=== PATIENT | female | born 1940 | race Caucasian/White ===

== ENCOUNTER 2017-05-09 12:20 | Emergency (ER) | payer MEDICARE ==
[2017-05-09 12:40] VITALS: BP 102/59; PULSE 68; RESP 18; TEMP 98.2
--- NOTE | 2017-05-09 12:44 | ED ---
Back Pain HPI - General Stated Complaint: Back Pain Time Seen by Provider: 05/09/17 12:24 Source: RN notes reviewed - History of Present Illness Initial Comments: Patient is 76-year-old female presents to the emergency room for evaluation of back pain. Patient states she has a history of chronic back pain. Patient states she has history of scoliosis. Patient states she will have episodes of spasming in her lower back that will last about half hour. Patient states today after walking out of a store she began having spasming in her right lower back radiating to her left lower back. Patient states she was in so much pain she could not stand straight so EMS was called. Patient states after lying down in the ambulance the spasming has subsided. Patient states she is feeling much better now. Patient states she does not have any pain. Patient denies paresthesias. Patient denies saddle anesthesia. Patient denies urine or fecal incontinence. Patient states the spasming is consistent with her normal episodes. Patient states she takes Tylenol extra strength daily for pain. Patient denies any recent fall or injury to her back. Patient denies any other symptoms or complaints. - Related Data Allergies Allergy/AdvReac Type Severity Reaction Status Date / Time No Known Allergies Allergy Verified 05/09/17 12:37 Review of Systems ROS Statement: Those systems with pertinent positive or pertinent negative responses have been documented in the HPI. ROS Other: All systems not noted in ROS Statement are negative. General Exam - General Exam Comments Initial Comments: Sitting in exam room, no acute distress. General appearance: alert, in no apparent distress Head exam: Present: atraumatic, normocephalic, normal inspection Eye exam: Present: normal appearance ENT exam: Present: normal exam Neck exam: Present: normal inspection Respiratory exam: Present: normal lung sounds bilaterally. Absent: respiratory distress Cardiovascular Exam: Present: regular rate, normal rhythm, normal heart sounds Extremities exam: Present: normal inspection, normal capillary refill Back exam: Present: normal inspection, full ROM. Absent: tenderness, CVA tenderness (R), CVA tenderness (L), muscle spasm, vertebral tenderness Neurological exam: Present: alert, oriented X3, CN II-XII intact, normal gait Psychiatric exam: Present: normal affect, normal mood Skin exam: Present: warm, dry, intact, normal color. Absent: rash Course Vital Signs 05/09/17 12:37 Temperature 98.2 F Pulse Rate 68 Respiratory 18 Rate Blood Pressure 102/59 O2 Sat by Pulse 98 Oximetry Medical Decision Making - Medical Decision Making Patient is a 76-year-old female presents to the emergency room for evaluation of low back pain. Patient has a history of low back pain. Patient has a history of episodes of muscle spasming in her back. Patient states this episode is similar to her other episodes. Patient denies any pain at the moment. Patient refused any pain medications or any further workup. Patient would like to be discharged home. Return parameters discussed. Disposition Clinical Impression: Low back pain Disposition: HOME SELF-CARE Condition: Good Instructions: Back Pain (ED), Lower Back Exercises (ED) Additional Instructions: Continue taking Tylenol or ibuprofen as needed for pain. Warm moist heat. Please follow up with primary care provider in 1-2 days. If any new symptom arises or symptoms worsen, return to ER as soon as possible. Referrals: Junaid Ayers MD [Primary Care Provider] - 1-2 days Time of Disposition: 12:41
== END 2017-05-09 12:59 | disposition home or self-care (01) ==
LOC: EC 12:20
DX: M62.830 Muscle spasm of back (principal)
CPT/HCPCS: 99283

== ENCOUNTER → 2018-05-13 | Outpatient (CLI) | payer MEDICARE ==
--- NOTE | 2018-05-15 10:27 | MM ---
Reason for exam: screening (asymptomatic). Last mammogram was performed 3 years and 4 months ago. History: Patient is postmenopausal. Took estrogen for 3 years 6 months. Took progesterone for 3 years 6 months. Physical Findings: A clinical breast exam by your physician is recommended on an annual basis and results should be correlated with mammographic findings. MG 3D Screening Mammo W/Cad Bilateral CC and MLO view(s) were taken. Prior study comparison: January 21, 2015, left breast MG work up mamm w CAD LT. January 15, 2015, bilateral MG screening mammo w CAD. There are scattered fibroglandular densities. Benign appearing bilateral calcifications. No suspicious abnormality. No significant changes when compared with prior studies. ASSESSMENT: Benign, BI-RAD 2 RECOMMENDATION: Routine screening mammogram of both breasts in 1 year.
== END | disposition home or self-care (01) ==
LOC: RADMAMWWP 17:03
PROVIDERS: ATTEND Family Medicine
DX: Z12.31 Encounter for screening mammogram for malignant neoplasm of breast (principal)
CPT/HCPCS: 77063; 77067

== ENCOUNTER → 2018-10-03 | Outpatient (CLI) | payer MEDICARE ==
[2018-10-03 14:41] LABS: HCT 44.7 % (34.0-46.0); HGB 14.9 gm/dL (11.4-16.0); MCH 30.6 pg (25.0-35.0); MCHC 33.2 g/dL (31.0-37.0); MCV 92.1 fL (80.0-100.0); Mean Platelet Volume 6.9; Platelet Count 263 k/uL (150-450); RBC 4.86 m/uL (3.80-5.40); RDW 12.5 % (11.5-15.5)
[2018-10-03 14:43] LABS: Appearance,Urine Clear (Clear); Bilirubin,Urine Negative (Negative); Blood,Urine Negative (Negative); Color,Urine Yellow; Glucose,Urine (UA) Negative (Negative); Ketones,Urine Negative (Negative); Leukocyte Esterase,Urine Negative (Negative); Nitrite,Urine Negative (Negative); PH, Urine 7.5 (5.0-8.0); Protein,Urine Negative (Negative); Specific Gravity,Urine 1.007 (1.001-1.035); Urobilinogen,Urine <2.0 mg/dL (<2.0)
[2018-10-03 14:50] LABS: Partial Thromboplastin Time 24.1 sec (22.0-30.0); Prothrombin Time 9.9 sec (9.0-12.0)
[2018-10-03 14:54] LABS: ALT 30 U/L (9-52); AST 29 U/L (14-36); Albumin 4.4 g/dL (3.5-5.0); Alkaline Phosphatase 58 U/L (38-126); Anion Gap 9 mmol/L; Blood Urea Nitrogen 7 mg/dL (7-17); Calcium 9.7 mg/dL (8.4-10.2); Carbon Dioxide 29 mmol/L (22-30); Chloride 94 mmol/L (98-107); Glucose 146 mg/dL (74-99); Potassium 4.2 mmol/L (3.5-5.1); Sodium 132 mmol/L (137-145); Total Bilirubin 0.5 mg/dL (0.2-1.3); Total Protein 6.7 g/dL (6.3-8.2)
== END | disposition home or self-care (01) ==
LOC: LABPAT 13:58
PROVIDERS: ATTEND Orthopaedic Surgery
DX: Z01.812 Encounter for preprocedural laboratory examination (principal)
CPT/HCPCS: 80053; 81003; 85027; 85610; 85730; 87070

== ENCOUNTER → 2018-10-09 | Outpatient (CLI) | payer MEDICARE | END | disposition home or self-care (01) | LOC: LABWHC1 11:15 | PROVIDERS: ATTEND Orthopaedic Surgery | DX: Z01.812 Encounter for preprocedural laboratory examination (principal) | CPT/HCPCS: 86850; 86900; 86901 ==

== ENCOUNTER 2018-10-21 10:07 | Inpatient (IN) | payer MEDICARE ==
[~2018-10-21 10:07] MED LIST: ACETAMINOPHEN TAB 500 MG TAB PO ONE; MELOXICAM 7.5 MG TAB PO ONE; TRANEXAMIC ACID 1,000 MG in SODIUM CHLORIDE 0.9% 50 ML IVPB ONE; VANCOMYCIN 750 MG in SODIUM CHLORIDE 0.9% 250 ML IVPB ONE
[2018-10-21] MEDS ORDERED: LIDOCAINE 1% 20 ML VIAL (10MG/ML) FOR IV START INTRADERMA PRN (11:06)
[2018-10-21] MEDS ORDERED: ONDANSETRON 4 MG/2 ML VIAL IVP ONE (11:06)
[2018-10-21] MEDS ORDERED: DEXAMETHASONE SOD PHOSPHATE 10 MG/ML 1 ML VIAL IV ONE (11:06)
[2018-10-21] MEDS ORDERED: SCOPOLAMINE 1.5MG/72HR PATCH TRANSDERM ONE (11:06)
[2018-10-21] MEDS ORDERED: HYDROmorphone 1 MG/ML 1 ML SYRINGE IVP PRN ×4 (11:06→11:59)
[2018-10-21] MEDS: LACTATED RINGERS 1,000 ML IV SCH (11:13)
[2018-10-21] MEDS ORDERED: NALOXONE 0.4 MG/ML 1 ML VIAL IV PRN (11:59)
[2018-10-21] MEDS ORDERED: MAGNESIUM HYDROXIDE 2,400 MG/10 ML CUP PO PRN (11:59)
[2018-10-21] MEDS ORDERED: hydrOXYzine PAMOATE 25 MG CAP PO PRN (11:59)
[2018-10-21] MEDS ORDERED: HYDROcodone/APAP 5-325MG 1 EACH TAB PO PRN (11:59)
[2018-10-21] MEDS ORDERED: ONDANSETRON 4 MG/2 ML VIAL IVP PRN (11:59)
[2018-10-21] MEDS: ROPIVACAINE 246.25 MG, EPINEPHrine 0.5 MG, KETOROLAC 30 MG, cloNIDine HCL/PF 80 MCG, WA... MISCELLANE ONE ×10 (13:48→14:21)
[2018-10-21] MEDS ORDERED: TRANEXAMIC ACID 1,000 MG/10 ML VIAL ONE (13:51)
[2018-10-21] MEDS ORDERED: MIDAZOLAM 2 MG/2 ML VIAL ONE (13:51)
[2018-10-21] MEDS ORDERED: HEPARIN SODIUM,PORCINE 10,000 UNIT/ML 1 ML VIAL ONE (13:51)
[2018-10-21] MEDS ORDERED: PHENYLEPHRINE-0.9% NACL SYG 1 MG/10 ML SYRINGE ONE (13:51)
[2018-10-21] MEDS ORDERED: ePHEDrine SULFATE/0.9% NACL/PF 50 MG/5 ML SYRINGE IV ONE (13:51)
[2018-10-21] MEDS ORDERED: SODIUM CHLORIDE 0.9% 100 ML BAG ONE (13:51)
[2018-10-21] MEDS ORDERED: DEXTROSE 5% IN WATER 250 ML BAG IV ONE (13:51)
[2018-10-21] MEDS ORDERED: fentaNYL (PF) 50 MCG/ML 2 ML AMP ONE (13:51)
[2018-10-21] MEDS ORDERED: SODIUM CHLORIDE 0.9% IRRIG 1,000 ML BTL IRRIGATION ONE (13:51)
[2018-10-21] MEDS ORDERED: BUPIVACAINE (PF) 0.5% 30 ML VIAL ONE (13:51)
--- NOTE | 2018-10-21 15:23 | P.OP ---
Date of Procedure: 10/21/18 Preoperative Diagnosis: Severe osteoarthritis right hip Postoperative Diagnosis: Severe osteoarthritis right hip Procedure(s) Performed: Right total hip arthroplasty with a direct anterior approach Implants: Lopez and nephew Polarstem size 3 standard Lopez & Nephew R3, 3 hole acetabular shell, 48 mm Lopez & Nephew reflection 6.5 mm cancellus screw, 20 mm 2 Lopez & Nephew R3, XLPE 20 acetabular liner Lopez & Nephew Oxinium femoral head 32 m, +0 All components were press-fit. The articulation is Oxinium on polyethylene. Anesthesia: spinal Surgeon: Mitchell Carbajal Box Sealing Machine Operator #1: Malu Lewis Estimated Blood Loss (ml): 300 (131 mL returned with Cell Saver) Pathology: other (Femoral head) Condition: stable Disposition: PACU Indications for Procedure: After failure of conservative treatment we discussed the surgical and nonsurgical treatment options at length. Patient wishes to proceed with a total hip arthroplasty with a direct anterior approach. Complications specific to this procedure were discussed at length, including but not limited to infection, leg length discrepancy, dislocation, and nerve injury. Patient is aware of all these complications and informed consent was obtained Operative Findings: The operative findings are consistent with severe osteoarthritis of the right hip Description of Procedure: Patient was seen and evaluated in the preoperative area, consent was reviewed, and the surgical site was marked with a skin marker. Patient was then brought to the operating room and given prophylactic antibiotics intravenously. 1 g of Tranexamic acid was also given. A spinal anesthetic was administered by the anesthesia department. The patient was then placed on the [place] table with the bony prominences well-padded. The hip area was then prepped and draped in usual sterile fashion. A universal timeout was then performed, which confirmed the patient's name, surgical site, ALLERGIES, and procedure being performed. Next the incision site was located at 1 cm distal and 1 cm lateral to the anterior superior iliac spine. The skin and subcutaneous tissues were sharply incised. Incision was carefully dissected down to the fascia overlying the tensor fascia renato muscle. This fascia was then incised in line with the incision. Next, using blunt finger dissection, the tensor fascia renato muscle was dissected off its investing fascia. The muscle was then carefully retracted laterally with a cobra retractor over the lateral neck of the femur. Next, the circumflex vessels were identified and cauterized using the AquaMantis device. The anterior hip capsule was then exposed. The capsule was then opened and an inverted T fashion. Cobra retractors were then placed intracapsularly. The proximal femur was then visualized. The femoral neck was then osteotomized appropriate level above the lesser trochanter. Small amount of traction was placed with the [place] table. A small wedge of bone was then removed from the remaining femoral head. Next, using a corkscrew femoral head was easily removed from the acetabulum. On gross visual inspection, the femoral head had complete loss of articular cartilage in multiple periarticular osteophytes. Attention was then turned to the acetabulum. the acetabulum was exposed and any remaining labrum was excised. Sequential reaming of the acetabulum was performed using fluoroscopic guidance. When the appropriate size was reached, a trial was then placed. The position and fit of the trial was checked with fluoroscopy. The trial was then removed. Then, using fluoroscopic guidance, the final implant was impacted at 20 of anteversion and 40 of abduction, and fully seated in the acetabulum. 2 screws were then placed in the acetabulum. Again fluoroscopy was used to check position of the screws. Next, the liner was then impacted, with a 20 elevated liner located in the anterior superior quadrant. Component locking was confirmed. Attention was then directed to the femur. With the aid of the [place] table, the femur was externally rotated to approximately 130, extended, and abducted under the opposite leg. A side hook was then placed under the proximal femur, and the side hook elevator was used to elevate the proximal femur. Retractors were then placed. A capsular release was performed, as well as a release of the conjoined tendon, which afforded excellent visualization of the proximal femur. Next, a box osteotome was used to lateralize the proximal femur. A sizer hand was then used to locate the femoral canal. Sequential broaching was then performed with appropriate size which afforded excellent fixation in the proximal femur. A trial was then placed with appropriate head and neck, and the hip was gently reduced with the aid of the [place] table. Fluoroscopy was then used to check position of the components, as well as to ensure equal leg lengths. The hip was then gently dislocated and the trials were then removed. Final implants were then impacted and the hip was again reduced. Final fluoroscopic x-rays confirmed that the components were in anatomic position, as well as equal leg lengths. The hip was also taken through range of motion, and found to be stable. The hip was then copiously irrigated with antibiotic solution with pulsatile lavage. The hip was then irrigated with Irrisept solution. The soft tissues were then injected with a ropivacaine solution, which consisted of 246.25 mg of ropivacaine, 0.5 mg of epinephrine, 30 mg of Toradol, 80 g of clonidine, and 48.45 mL of sterile water, for a total of 100 mL of fluid injected. A second dose of 1 g of Tranexamic acid was also given. the fascia was then closed with 2-0 strata fix suture. The subcutaneous tissue was closed with 3-0 Vicryl. The subcuticular tissue was closed with 3-0 strata fix suture. The skin was then closed with Dermabond glue and a sterile silver dressing. The patient was then transferred to the recovery room in stable condition. The geriatric assistant SEBASTIEN Smith was required due to the complexity of surgery, and the need for skilled surgical instrument maker for positioning, draping, exposure, retraction, and closure of the wound.
--- NOTE | 2018-10-21 15:55 | XR ---
EXAMINATION TYPE: XR Hip Limited RT, XR Hip Limited RT DATE OF EXAM: 10/21/2018 CLINICAL HISTORY: Right hip pain. TECHNIQUE: Fluoroscopy. COMPARISON: None. FINDINGS/IMPRESSION: Fluoroscopic guidance was provided during procedure performed by Dr. Carbajal. A total of 39 seconds of fluoroscopic time was utilized during the procedure and 2 spot images was a cquired during a right hip arthroplasty.
[2018-10-21 18:25] VITALS: BMI 24.0
[2018-10-21] MEDS: SODIUM CHLORIDE 0.9% 1,000 ML IV SCH (19:09)
[2018-10-21] MEDS: ASPIRIN 325 MG TAB PO SCH (21:44)
[2018-10-21] MEDS: SENNOSIDES-DOCUSATE SODIUM 1 EACH TAB PO SCH (21:44)
[2018-10-22] MEDS ORDERED: VANCOMYCIN 750 MG in SODIUM CHLORIDE 0.9% 250 ML IVPB ONE ×2
[2018-10-22] MEDS: SODIUM CHLORIDE 0.9% 1,000 ML IV SCH ×2 (03:42→20:10)
[2018-10-22 07:02] LABS: Basophils % (A) 0 %; Eosinophils % (A) 0 %; HCT 32.3 % (34.0-46.0); Lymphocytes # (A) 0.6 k/uL (1.0-4.8); Lymphocytes % (A) 6 %; MCH 31.5 pg (25.0-35.0); MCHC 34.9 g/dL (31.0-37.0); MCV 90.3 fL (80.0-100.0); Mean Platelet Volume 7.2; Monocytes # (A) 0.6 k/uL (0-1.0); Monocytes % (A) 6 %; Neutrophils # (A) 7.9 k/uL (1.3-7.7); Neutrophils % (A) 86 %; Platelet Count 196 k/uL (150-450); RBC 3.58 m/uL (3.80-5.40); RDW 12.6 % (11.5-15.5); WBC 9.1 k/uL (3.8-10.6)
[2018-10-22 07:03] LABS: HGB 11.3 gm/dL (11.4-16.0)
[2018-10-22] MEDS: MELOXICAM 7.5 MG TAB PO SCH (08:45)
[2018-10-22] MEDS: ASPIRIN 325 MG TAB PO SCH ×2 (08:45→20:21)
--- NOTE | 2018-10-22 09:25 | P.PN ---
Subjective Progress Note Date: 10/22/18 This is a 78-year-old female who is status post right total hip arthroplasty. This is postoperative day #1. Patient is seen and evaluated at bedside with Dr. Mitchell Carbajal. Patient states that she has not been able to bear weight on the right lower extremity yet. Patient also reports some numbness to the top of her right thigh. Patient denies any fever/chills, weakness, tingling, abdominal pain, shortness of breath or chest pain. Objective - Vital Signs Vital signs: Vital Signs Temp 97.6 F 10/22/18 07:20 Pulse 92 10/22/18 07:20 Resp 16 10/22/18 07:20 BP 134/72 10/22/18 07:20 Pulse Ox 98 10/22/18 07:20 Intake & Output 10/21/18 10/22/18 10/22/18 18:59 06:59 18:59 Intake Total 1300 950 Output Total 300 Balance 1000 950 Weight 54 kg Intake: IV 1300 Intake, IV Titration 950 Amount Sodium Chloride 0.9% 1, 700 000 ml @ 70 mls/hr IV . [id number] [facility] Rx#:[id number] Vancomycin 750 mg In 250 Sodium Chloride 0.9% 250 ml @ 125 mls/hr IVPB ONCE ONE Rx#:[id number] Output: Estimated Blood Loss 300 Other: # Voids 1 - Exam Vital signs are stable. Patient is in no acute distress and is alert and oriented 3. Calf is soft and nontender to palpation. Dressing is clean, dry, and intact. Patient has full foot and ankle motion without pain or difficulty. Neurovascular status and circulatory status are intact. - Labs CBC & Chem 7: 10/22/18 06:11 Labs: Abnormal Lab Results - Last 24 Hours (Table) 10/22/18 Range/Units 06:11 RBC 3.58 L (3.80-5.40) m/uL Hgb 11.3 L D (11.4-16.0) gm/dL Hct 32.3 L (34.0-46.0) % Neutrophils # 7.9 H (1.3-7.7) k/uL Lymphocytes # 0.6 L (1.0-4.8) k/uL Assessment and Plan (1) Primary osteoarthritis of right hip Current Visit: Yes Status: Acute Code(s): M16.11 - UNILATERAL PRIMARY OSTEOARTHRITIS, RIGHT HIP SNOMED Code(s): 214581069 (2) S/P total hip arthroplasty Current Visit: Yes Status: Acute Code(s): Z96.649 - PRESENCE OF UNSPECIFIED ARTIFICIAL HIP JOINT SNOMED Code(s): 451417214554 Plan: Continue routine postop care. An x-ray of the right hip is ordered. Continue antocoagulation. Weightbearing as tolerated with a walker. Leave dressing in place for 10 days. Anticipate discharge to the [facility] on .
--- NOTE | 2018-10-22 10:06 | XR ---
EXAMINATION TYPE: XR Hip Complete RT DATE OF EXAM: 10/22/2018 CLINICAL HISTORY: Right hip pain and osteoarthritis. TECHNIQUE: Single AP portable view of the right hip is obtained immediately postoperatively. COMPARISON: None. FINDINGS: Metallic hardware from right hip arthroplasty is seen and appears satisfactory in alignment and position. There is evidence of recent surgery with subcutaneous gas noted laterally. IMPRESSION: Metallic hardware from right hip arthroplasty is satisfactory in position.
[2018-10-22] MEDS: HYDROcodone/APAP 5-325MG 1 EACH TAB PO PRN ×3 (10:44→21:57)
[2018-10-22] MEDS: LACTATED RINGERS 1,000 ML IV SCH (15:55)
[2018-10-22] MEDS: LISINOPRIL 10 MG TAB PO SCH (20:21)
[2018-10-22] MEDS: HYDROCHLOROTHIAZIDE 25 MG TAB PO SCH (20:21)
[2018-10-22] MEDS: SENNOSIDES-DOCUSATE SODIUM 1 EACH TAB PO SCH (20:21)
[2018-10-22] MEDS: DIAZEPAM 5 MG TAB PO PRN (22:34)
[2018-10-23] MEDS: HYDROcodone/APAP 5-325MG 1 EACH TAB PO PRN ×2 (03:30→08:58)
[2018-10-23] MEDS: DIAZEPAM 5 MG TAB PO PRN (05:43)
[2018-10-23] MEDS: PANTOPRAZOLE 40 MG TABLET PO SCH (07:57)
[2018-10-23] MEDS: HYDROCHLOROTHIAZIDE 25 MG TAB PO SCH (08:58)
[2018-10-23] MEDS: MELOXICAM 7.5 MG TAB PO SCH (08:58)
[2018-10-23] MEDS: LISINOPRIL 10 MG TAB PO SCH (08:58)
[2018-10-23] MEDS: ASPIRIN 325 MG TAB PO SCH ×2 (08:58→20:16)
[2018-10-23] MEDS: SODIUM CHLORIDE 0.9% 1,000 ML IV SCH ×2 (08:59→22:46)
[2018-10-23] MEDS ORDERED: HYDROcodone/APAP 7.5-325MG 1 EACH TAB PO PRN (09:46)
--- NOTE | 2018-10-23 09:53 | P.PN ---
Subjective Progress Note Date: 10/23/18 This is a 78-year-old female who is status post right total hip arthroplasty. This is postoperative day #2. Patient is seen and evaluated at bedside with Dr. Mitchell Carbajal. Patient states that she has been up in a chair twice. Patient reports continued pain in the right hip. Patient denies any fever/chills , weakness, tingling, abdominal pain, shortness of breath or chest pain. Objective - Vital Signs Vital signs: Vital Signs Temp 97.7 F 10/23/18 07:53 Pulse 89 10/23/18 07:53 Resp 16 10/23/18 01:30 BP 151/71 10/23/18 07:53 Pulse Ox 98 10/23/18 07:53 Intake & Output 10/22/18 10/23/18 10/23/18 18:59 06:59 18:59 Intake Total 560 480 Balance 560 480 Intake: IV 560 Sodium Chloride 0.9% 1, 560 000 ml @ 70 mls/hr IV . [id number] [facility] Rx#:[id number] Oral 480 Other: # Voids 1 1 # Bowel Movements 1 - Exam Vital signs are stable. Patient is in no acute distress and is alert and oriented 3. Calf is soft and nontender to palpation. Dressing is clean, dry, and intact. Patient has full foot and ankle motion without pain or difficulty. Neurovascular status and circulatory status are intact. - Labs CBC & Chem 7: 10/22/18 06:11 Assessment and Plan Assessment: GERD Hypertension Syncope (1) Primary osteoarthritis of right hip Current Visit: Yes Status: Acute Code(s): M16.11 - UNILATERAL PRIMARY OSTEOARTHRITIS, RIGHT HIP SNOMED Code(s): 860954656 (2) S/P total hip arthroplasty Current Visit: Yes Status: Acute Code(s): Z96.649 - PRESENCE OF UNSPECIFIED ARTIFICIAL HIP JOINT SNOMED Code(s): 599022646956 Plan: Continue routine postop care and pain control. Physical therapy today. X-rays of the right hip showed total hip arthroplasty in good position and alignment. Continue antocoagulation. Weightbearing as tolerated with a walker. Leave dressing in place for 10 days. Anticipate discharge to the [facility] on .
[2018-10-23] MEDS: LACTATED RINGERS 1,000 ML IV SCH (11:34)
--- NOTE | 2018-10-23 15:12 | PN ---
PROGRESS NOTE DATE OF SERVICE: 10/22/2018 CHIEF COMPLAINT: Status post MELANIE. HISTORY OF PRESENT ILLNESS: This lady is a doing reasonably well and not having any particular problems with pain. She is not having any shortness of breath, chest pain, fever, chills, etc. PHYSICAL EXAM: Her chest is clear and cardiac exam is normal and the abdomen is soft. IMPRESSION: 1. Status post right MELANIE. 2. History of hypertension. 3. History of hyperlipidemia. PLAN: No change in program and follow with Surgery. MMODL / IJN: [id number] /
--- NOTE | 2018-10-23 16:24 | PN ---
PROGRESS NOTE DATE OF SERVICE: 10/23/2018 CHIEF COMPLAINT: Status post right hip replacement. HISTORY OF PRESENT ILLNESS: This lady is having some problems with lightheadedness and dizziness. She has had no headache, chest pain, neurologic problems, etc. She is having some increasing discomfort in the right hip and thigh area. PHYSICAL EXAMINATION: She is pale. Her chest is clear. Cardiac exam is normal. The abdomen is soft, nontender. Dressing was dry and there is some edema in the right hip incisional area, which is to be expected. IMPRESSION: Status post right total hip arthroplasty. PLAN: Repeat labs and follow hemoglobin. MMODL / IJN: [id number] /
[2018-10-23] MEDS: HYDROcodone/APAP 7.5-325MG 1 EACH TAB PO PRN ×2 (17:49→23:48)
--- NOTE | 2018-10-23 19:03 | CONS ---
CONSULTATION CHIEF COMPLAINT: Arthritis of the right hip. HISTORY OF PRESENT ILLNESS: This is the first known admission for this 78-year-old white female who has come in for elective hip replacement on the right. She has been generally healthy and well preserved for her age. She has scoliosis, which has presented difficulty for her on and off throughout her life. She also has a history of mild hypertension and hyperlipidemia. REVIEW OF SYSTEMS: She has had no CVAs, TIAs, neurologic problems, change in vision or hearing, chest pain, shortness of breath, palpitations, heart disease, angina, infarctions, orthopnea, PND, abdominal pain, nausea, vomiting, hematemesis, melena, hematochezia, jaundice, hematuria, frequency, urgency, renal failure, diabetes, etc. Past medical history, family history, and personal and social histories reveal that SHE CANNOT TAKE CIPRO. She is on Ultram for pain, omeprazole 20 mg once a day, simvastatin 40 mg at bedtime, hydrochlorothiazide 25 mg once a day, lisinopril 10 mg once a day. She does not smoke or abuse alcohol. PHYSICAL EXAMINATION: Blood pressure 140/80 with pulse 70, respirations 14, and she is afebrile. In general, she appeared to be well developed, well nourished, in no acute distress. Skin color was normal. Skin was warm and dry. Lymph nodes were not enlarged. Head, ears, eyes, nose, mouth and throat normal. Neck veins are not distended. Thyroid is not enlarged. Chest is clear. Cardiac exam is normal. Abdomen is soft and nontender. Extremities are normal. The only abnormality is her scoliosis. IMPRESSION: 1. Osteoarthritis of the right hip. 2. Hypertension. 3. Hyperlipidemia. 4. Scoliosis. RECOMMENDATIONS: None. MMODL / IJN: [id number] /
[2018-10-23] MEDS: SENNOSIDES-DOCUSATE SODIUM 1 EACH TAB PO SCH (20:16)
[2018-10-24 00:34] VITALS: RESP 16
[2018-10-24] MEDS: HYDROcodone/APAP 7.5-325MG 1 EACH TAB PO PRN (05:54)
--- NOTE | 2018-10-24 08:36 | P.DS ---
Providers Date of admission: 10/21/18 10:07 Expected date of discharge: 10/24/18 Attending physician: Mitchell Carbajal Consults: 10/21/18 11:59 Consult Physician Routine Consulting Provider: Junaid Ayers Consult Reason/Comments: medical management Do you want consulting provider notified?: Yes Primary care physician: Junaid Ayers - Discharge Diagnosis(es) (1) Primary osteoarthritis of right hip Current Visit: Yes Status: Acute (2) S/P total hip arthroplasty Current Visit: Yes Status: Acute Hospital Course: This is a 78-year-old female with known history of degenerative arthritis of the right hip. The patient presents for evaluation. After discussion and consideration patient elects to proceed with total hip arthroplasty. The patient is seen preoperatively by Dr. Carbajal and medically cleared for surgery by their primary care physician. Patient is admitted to [facility] on 10/21/2018 for total hip arthroplasty. The procedures performed without complication or sequelae. The patient is doing well postoperatively. Labs and vital signs are stable on day of discharge. On day of discharge patient's hip incision is healing well. There is minimal erythema. There is no drainage noted at this time. There is minimal soft tissue swelling to the hip and thigh. Patient has full foot and ankle motion without difficulty or pain. Neurovascular status to the right lower extremity is intact. Patient is discharged to rehab in good condition. Please see med rec for accurate list of home medications. Plan - Discharge Summary Discharge Rx Participant: Yes New Discharge Prescriptions: New Aspirin 325 mg PO BID #60 tab HYDROcodone/APAP 7.5-325MG [[place] 7.5-325] 1 - 2 tab PO Q4-6H PRN #84 tab PRN Reason: Pain Sennosides [Senokot] 1 tab PO BID #60 tablet No Action traMADol HCl [Ultram] 50 mg PO Q6HR PRN PRN Reason: Pain Simvastatin [Zocor] 20 mg PO HS Omeprazole [PriLOSEC] 20 mg PO AC-BRKFST Lisinopril [Zestril] 10 mg PO DAILY Hydrochlorothiazide [Hydrodiuril] 25 mg PO DAILY Discharge Medication List Hydrochlorothiazide [Hydrodiuril] 25 mg PO DAILY 10/10/18 [History] Lisinopril [Zestril] 10 mg PO DAILY 10/10/18 [History] Omeprazole [PriLOSEC] 20 mg PO AC-BRKFST 10/10/18 [History] Simvastatin [Zocor] 20 mg PO HS 10/10/18 [History] traMADol HCl [Ultram] 50 mg PO Q6HR PRN 10/10/18 [History] Aspirin 325 mg PO BID #60 tab 10/23/18 [Rx] HYDROcodone/APAP 7.5-325MG [[place] 7.5-325] 1 - 2 tab PO Q4-6H PRN #84 tab [Rx] Sennosides [Senokot] 1 tab PO BID #60 tablet 10/23/18 [Rx] Follow up Appointment(s)/Referral(s): Mitchell Carbajal DO [Doctor of Osteopathic Medicine] - 2 Weeks Activity/Diet/Wound Care/Special Instructions: Weightbearing as tolerated with walker. Leave dressing intact. Dressing may be removed by home care nurse on 2017. May shower with dressing on. Please follow-up with [facility] in 2 weeks and call with any questions or concerns, . Discharge Disposition: TRANSFER TO SNF/ECF
[2018-10-24 08:46] LABS: Basophils % (A) 0 %; Eosinophils # (A) 0.1 k/uL (0-0.7); Eosinophils % (A) 1 %; HCT 32.6 % (34.0-46.0); Lymphocytes # (A) 0.6 k/uL (1.0-4.8); Lymphocytes % (A) 10 %; MCH 30.7 pg (25.0-35.0); MCHC 33.7 g/dL (31.0-37.0); MCV 91.1 fL (80.0-100.0); Monocytes # (A) 0.4 k/uL (0-1.0); Monocytes % (A) 6 %; Neutrophils # (A) 5.2 k/uL (1.3-7.7); Neutrophils % (A) 82 %; Platelet Count 178 k/uL (150-450); RBC 3.58 m/uL (3.80-5.40); RDW 12.4 % (11.5-15.5); WBC 6.4 k/uL (3.8-10.6)
[2018-10-24] MEDS: ASPIRIN 325 MG TAB PO SCH (09:02)
[2018-10-24] MEDS: PANTOPRAZOLE 40 MG TABLET PO SCH (09:02)
[2018-10-24] MEDS: MELOXICAM 7.5 MG TAB PO SCH (09:02)
[2018-10-24] MEDS: LACTATED RINGERS 1,000 ML IV SCH (09:03)
[2018-10-24] MEDS: HYDROCHLOROTHIAZIDE 25 MG TAB PO SCH (09:03)
[2018-10-24] MEDS: SODIUM CHLORIDE 0.9% 1,000 ML IV SCH (09:03)
[2018-10-24] MEDS: LISINOPRIL 10 MG TAB PO SCH (09:03)
[2018-10-24] MEDS ORDERED: ONDANSETRON ODT 4 MG TAB PO PRN (10:55)
[2018-10-24 14:59] VITALS: BP 171/80; PULSE 89; TEMP 97.9
--- NOTE | 2018-10-24 18:46 | PN ---
PROGRESS NOTE DATE OF SERVICE: 10/24/2018. CHIEF COMPLAINT: Status post right hip replacement. HISTORY OF PRESENT ILLNESS: This lady is feeling much better today. Pain is improved and she is having no problems. Sensation has returned to the right leg. She is going to [facility] today. PHYSICAL EXAM: She is slightly pale, but she is awake, alert, oriented. Head, ears, eyes, nose, mouth, and throat are normal. Chest is clear. Cardiac exam is normal and dressing is dry. IMPRESSION: Status post right total hip arthroplasty. PLAN: She is going [facility] today. MMODL / IJN: [id number] /
== END 2018-10-24 16:33 | DRG 470 ==
LOC: 2ORMAIN 10:07 → 4SSUR 17:28
PROVIDERS: ADMIT Orthopaedic Surgery; ATTEND Orthopaedic Surgery
PROC: 0SR906A Replacement of Right Hip Joint with Oxidized Zirconium on Polyethylene Synthetic Substitute, Uncemented, Open Approach (ICD-10-PCS; principal; 2018-10-21 13:30)
DX: M16.11 Unilateral primary osteoarthritis, right hip (principal); E78.5 Hyperlipidemia, unspecified; I10 Essential (primary) hypertension; K21.9 Gastro-esophageal reflux disease without esophagitis; M41.9 Scoliosis, unspecified; Z79.899 Other long term (current) drug therapy; Z88.1 Allergy status to other antibiotic agents
CPT/HCPCS: 73501; 73502; 85025; 86850; 86891; 86900; 86901; 88300

== ENCOUNTER 2021-04-08 14:13 | Emergency (ER) | payer MEDICARE ==
[2021-04-08] MEDS ORDERED: SODIUM CHLORIDE 0.9% 1,000 ML IV STA (14:52)
[2021-04-08 15:01] LABS: Basophils % (A) 0 %; Eosinophils # (A) 0.1 k/uL (0-0.7); Eosinophils % (A) 2 %; HGB 15.4 gm/dL (11.4-16.0); Lymphocytes # (A) 0.7 k/uL (1.0-4.8); Lymphocytes % (A) 10 %; MCV 88.4 fL (80.0-100.0); Mean Platelet Volume 6.9; Monocytes # (A) 0.3 k/uL (0-1.0); Monocytes % (A) 4 %; Neutrophils # (A) 5.6 k/uL (1.3-7.7); Neutrophils % (A) 82 %; Platelet Count 195 k/uL (150-450); RBC 4.97 m/uL (3.80-5.40); RDW 12.6 % (11.5-15.5); WBC 6.8 k/uL (3.8-10.6)
[2021-04-08 15:13] LABS: ALT 15 U/L (4-34); AST 31 U/L (14-36); African American GFR (CKD) >90 (>60 ml/min/1.73 sqM); Albumin 4.5 g/dL (3.5-5.0); Alkaline Phosphatase 49 U/L (38-126); Anion Gap 10 mmol/L; Blood Urea Nitrogen 8 mg/dL (7-17); Calcium 9.4 mg/dL (8.4-10.2); Carbon Dioxide 28 mmol/L (22-30); Chloride 91 mmol/L (98-107); Glucose 141 mg/dL (74-99); Non-African American GFR(CKD) >90 (>60 ml/min/1.73 sqM); Potassium 3.6 mmol/L (3.5-5.1); Sodium 129 mmol/L (137-145); Total Bilirubin 0.4 mg/dL (0.2-1.3); Total Protein 6.9 g/dL (6.3-8.2)
[2021-04-08 15:25] LABS: INR 0.9 (<1.2); Prothrombin Time 10.2 sec (9.0-12.0)
--- NOTE | 2021-04-08 15:32 | XR ---
EXAMINATION TYPE: XR chest 2V DATE OF EXAM: 04/08/2021 COMPARISON: NONE HISTORY: Shortness of breath TECHNIQUE: Frontal and lateral views of the chest are obtained. FINDINGS: Scattered senescent parenchymal changes noted. Hyperinflation compatible with COPD. No evidence for infiltrate. No evidence for atelectasis. Heart size is stable. Mediastinal structures are stable and grossly unremarkable. No evidence for hilar prominence. Degenerative changes dorsal spine. IMPRESSION: 1. No evidence for acute pulmonary disease.
--- NOTE | 2021-04-08 15:33 | ED ---
General Adult HPI - General Chief complaint: Dizziness Stated complaint: SOB,neck pain Time Seen by Provider: 04/08/21 14:25 Source: patient, family Mode of arrival: wheelchair Limitations: no limitations - History of Present Illness Initial comments: Patient is a 80-year-old female presenting to the emergency department with a few vague complaints. Patient states she has been feeling lightheaded and dizzy on and off for the past day or 2. However she states that she also has vasovagal syncope and having some dizziness is not abnormal for her. She denies any syncopal events. Patient is also complaining of feeling more short of breath over the past 2 days. She denies any chest pains, she is having some discomfort in her neck. She does have history of severe scoliosis so some neck pain and tightness is not abnormal for her. She does admit to a little bit of a headache. She denies any changes in her vision, no fever or chills. She states she normally has a little bit of a cough but no more than usual. She denies any abdominal pain, no nausea or vomiting. She denies any dysuria. She states that she spoke to her primary care physician today and he recommend coming in for evaluation. She has no further complaints at this time. Upon arrival to the ER, she is hypertensive, rest of vitals normal. - Related Data Home Medications Medication Instructions Recorded Confirmed Omeprazole [PriLOSEC] 20 mg PO AC-BRKFST 10/10/18 04/08/21 hydroCHLOROthiazide [Hydrodiuril] 25 mg PO HS 10/10/18 04/08/21 lisinopriL [Zestril] 10 mg PO DAILY 10/10/18 04/08/21 Ascorbic Acid [Vitamin C] 1,000 mg PO DAILY 04/08/21 04/08/21 Multivitamins, Thera [Multivitamin 1 tab PO DAILY 04/08/21 04/08/21 (formulary)] Simvastatin [Zocor] 40 mg PO HS 04/08/21 04/08/21 Allergies Allergy/AdvReac Type Severity Reaction Status Date / Time No Known Allergies Allergy Verified 04/08/21 16:13 Review of Systems ROS Statement: Those systems with pertinent positive or pertinent negative responses have been documented in the HPI. ROS Other: All systems not noted in ROS Statement are negative. Past Medical History Past Medical History: Hypertension Additional Past Medical History / Comment(s): scoliosis History of Any Multi-Drug Resistant Organisms: None Reported Past Surgical History: No Surgical Hx Reported, Joint Replacement Additional Past Surgical History / Comment(s): D & C's Past Anesthesia/Blood Transfusion Reactions: Previous Problems w/ Anesthesia, Family History of Problems w/ Anesthesia Additional Past Anesthesia/Blood Transfusion Reaction / Comment(s): woke crying hysterically after surgery, daughter gets sick w/anesthesia & cries Past Psychological History: No Psychological Hx Reported Smoking Status: Never smoker Past Alcohol Use History: None Reported Past Drug Use History: None Reported - Past Family History Mother Family Medical History: No Reported History General Exam - General Exam Comments Initial Comments: GENERAL: Patient is well-developed and well-nourished. Patient is nontoxic and in no acute distress. HEAD: Atraumatic, normocephalic. EYES: Pupils equal round and reactive to light, extraocular movements intact, sclera anicteric, conjunctiva are normal. Eyelids were unremarkable. ENT: TMs normal, nares patent, oropharynx clear without exudates. Moist mucous membranes. NECK: Normal range of motion, supple without lymphadenopathy or JVD. LUNGS: Unlabored respirations. Breath sounds clear to auscultation bilaterally and equal. No wheezes rales or rhonchi. HEART: Regular rate and rhythm without murmurs, rubs or gallops. ABDOMEN: Soft, nontender, normoactive bowel sounds. No guarding, no rebound. No masses appreciated. : Deferred MUSCULOSKELETAL: Normal extremities with adequate strength and normal range of motion, no pitting or edema. No clubbing or cyanosis. NEUROLOGICAL: Patient is alert and oriented x 3. Motor and sensory are also intact. Cranial nerves II through XII grossly intact. Symmetrical smile. Normal speech, normal gait. PSYCH: Normal mood, normal affect. SKIN: Warm, Dry, normal turgor, no rashes or lesions noted. Limitations: no limitations Course Vital Signs 04/08/21 04/08/21 14:19 18:27 Temperature 97.6 F 98 F Pulse Rate 81 80 Respiratory 16 18 Rate Blood Pressure 179/81 143/75 O2 Sat by Pulse 100 100 Oximetry EKG Findings - EKG Comments: EKG Findings:: Sinus rhythm with frequent PVCs, possible left atrial enlargement, ST and T-wave abnormalities, no signs of an acute ischemia. Ventricular rate 78, SC interval 184, QT 380. EKG reviewed by Dr. Swanson. Medical Decision Making - Medical Decision Making Patient 80-year-old female here with some shortness of breath started yesterday. She has has a few other vague complaints of fatigue, mild posterior neck pain. Patient was slightly hypertensive upon arrival, rest of vitals were normal. Labs show no acute process other than some mild dehydration, sodium was 129 Pollock was low. Urine shows no evidence of infection, troponin is normal. Chest x-ray showed no acute process CT of the brain also is showing chronic changes, no acute process. I did speak with Dr. Ayers who wanted to obtain a d-dimer before patient was discharged. Patient's dimer came back at 1.09. I did order a CT chest to rule out PE, no evidence of PE. Patient is stable for discharge. She can follow-up with Dr. Ayers's office. She is in agreement with this plan of care. Return parameters were discussed with her and she verbalized understanding. Case discussed with Dr. Swanson. - Lab Data Result diagrams: 04/08/21 14:54 04/08/21 14:54 Lab Results 04/08/21 04/08/21 04/08/21 Range/Units 14:54 14:54 14:54 WBC 6.8 (3.8-10.6) k/uL RBC 4.97 (3.80-5.40) m/uL Hgb 15.4 (11.4-16.0) gm/dL Hct 44.0 (34.0-46.0) % MCV 88.4 (80.0-100.0) fL MCH 31.0 (25.0-35.0) pg MCHC 35.0 (31.0-37.0) g/dL RDW 12.6 (11.5-15.5) % Plt Count 195 (150-450) k/uL MPV 6.9 Neutrophils % 82 % Lymphocytes % 10 % Monocytes % 4 % Eosinophils % 2 % Basophils % 0 % Neutrophils # 5.6 (1.3-7.7) k/uL Lymphocytes # 0.7 L (1.0-4.8) k/uL Monocytes # 0.3 (0-1.0) k/uL Eosinophils # 0.1 (0-0.7) k/uL Basophils # 0.0 (0-0.2) k/uL PT (9.0-12.0) sec INR (<1.2) APTT (22.0-30.0) sec D-Dimer (<0.60) mg/L FEU Sodium 129 L (137-145) mmol/L Potassium 3.6 (3.5-5.1) mmol/L Chloride 91 L (98-107) mmol/L Carbon Dioxide 28 (22-30) mmol/L Anion Gap 10 mmol/L BUN 8 (7-17) mg/dL Creatinine 0.48 L (0.52-1.04) mg/dL Est GFR (CKD-EPI)AfAm >90 (>60 ml/min/1.73 sqM) Est GFR (CKD-EPI)NonAf >90 (>60 ml/min/1.73 sqM) Glucose 141 H (74-99) mg/dL Plasma Lactic Acid Kali (0.7-2.0) mmol/L Calcium 9.4 (8.4-10.2) mg/dL Total Bilirubin 0.4 (0.2-1.3) mg/dL AST 31 (14-36) U/L ALT 15 (4-34) U/L Alkaline Phosphatase 49 (38-126) U/L Troponin I <0.012 (0.000-0.034) ng/mL Total Protein 6.9 (6.3-8.2) g/dL Albumin 4.5 (3.5-5.0) g/dL Urine Color Urine Appearance (Clear) Urine pH (5.0-8.0) Ur Specific [place] (1.001-1.035) Urine Protein (Negative) Urine Glucose (UA) (Negative) Urine Ketones (Negative) Urine Blood (Negative) Urine Nitrite (Negative) Urine Bilirubin (Negative) Urine Urobilinogen (<2.0) mg/dL Ur Leukocyte Esterase (Negative) 04/08/21 04/08/21 04/08/21 Range/Units 15:02 15:02 15:02 WBC (3.8-10.6) k/uL RBC (3.80-5.40) m/uL Hgb (11.4-16.0) gm/dL Hct (34.0-46.0) % MCV (80.0-100.0) fL MCH (25.0-35.0) pg MCHC (31.0-37.0) g/dL RDW (11.5-15.5) % Plt Count (150-450) k/uL MPV Neutrophils % % Lymphocytes % % Monocytes % % Eosinophils % % Basophils % % Neutrophils # (1.3-7.7) k/uL Lymphocytes # (1.0-4.8) k/uL Monocytes # (0-1.0) k/uL Eosinophils # (0-0.7) k/uL Basophils # (0-0.2) k/uL PT 10.2 (9.0-12.0) sec INR 0.9 (<1.2) APTT 25.0 (22.0-30.0) sec D-Dimer 1.08 H (<0.60) mg/L FEU Sodium (137-145) mmol/L Potassium (3.5-5.1) mmol/L Chloride (98-107) mmol/L Carbon Dioxide (22-30) mmol/L Anion Gap mmol/L BUN (7-17) mg/dL Creatinine (0.52-1.04) mg/dL Est GFR (CKD-EPI)AfAm (>60 ml/min/1.73 sqM) Est GFR (CKD-EPI)NonAf (>60 ml/min/1.73 sqM) Glucose (74-99) mg/dL Plasma Lactic Acid Kali 1.6 (0.7-2.0) mmol/L Calcium (8.4-10.2) mg/dL Total Bilirubin (0.2-1.3) mg/dL AST (14-36) U/L ALT (4-34) U/L Alkaline Phosphatase (38-126) U/L Troponin I (0.000-0.034) ng/mL Total Protein (6.3-8.2) g/dL Albumin (3.5-5.0) g/dL Urine Color Urine Appearance (Clear) Urine pH (5.0-8.0) Ur Specific [place] (1.001-1.035) Urine Protein (Negative) Urine Glucose (UA) (Negative) Urine Ketones (Negative) Urine Blood (Negative) Urine Nitrite (Negative) Urine Bilirubin (Negative) Urine Urobilinogen (<2.0) mg/dL Ur Leukocyte Esterase (Negative) 04/08/21 Range/Units 15:51 WBC (3.8-10.6) k/uL RBC (3.80-5.40) m/uL Hgb (11.4-16.0) gm/dL Hct (34.0-46.0) % MCV (80.0-100.0) fL MCH (25.0-35.0) pg MCHC (31.0-37.0) g/dL RDW (11.5-15.5) % Plt Count (150-450) k/uL MPV Neutrophils % % Lymphocytes % % Monocytes % % Eosinophils % % Basophils % % Neutrophils # (1.3-7.7) k/uL Lymphocytes # (1.0-4.8) k/uL Monocytes # (0-1.0) k/uL Eosinophils # (0-0.7) k/uL Basophils # (0-0.2) k/uL PT (9.0-12.0) sec INR (<1.2) APTT (22.0-30.0) sec D-Dimer (<0.60) mg/L FEU Sodium (137-145) mmol/L Potassium (3.5-5.1) mmol/L Chloride (98-107) mmol/L Carbon Dioxide (22-30) mmol/L Anion Gap mmol/L BUN (7-17) mg/dL Creatinine (0.52-1.04) mg/dL Est GFR (CKD-EPI)AfAm (>60 ml/min/1.73 sqM) Est GFR (CKD-EPI)NonAf (>60 ml/min/1.73 sqM) Glucose (74-99) mg/dL Plasma Lactic Acid Kali (0.7-2.0) mmol/L Calcium (8.4-10.2) mg/dL Total Bilirubin (0.2-1.3) mg/dL AST (14-36) U/L ALT (4-34) U/L Alkaline Phosphatase (38-126) U/L Troponin I (0.000-0.034) ng/mL Total Protein (6.3-8.2) g/dL Albumin (3.5-5.0) g/dL Urine Color Colorless Urine Appearance Clear (Clear) Urine pH 7.0 (5.0-8.0) Ur Specific [place] 1.002 (1.001-1.035) Urine Protein Negative (Negative) Urine Glucose (UA) Negative (Negative) Urine Ketones Negative (Negative) Urine Blood Negative (Negative) Urine Nitrite Negative (Negative) Urine Bilirubin Negative (Negative) Urine Urobilinogen <2.0 (<2.0) mg/dL Ur Leukocyte Esterase Negative (Negative) Disposition Clinical Impression: Dyspnea, Dehydration Disposition: HOME SELF-CARE Condition: Stable Instructions (If sedation given, give patient instructions): Dyspnea (ED) Additional Instructions: Please return to the Emergency Department if symptoms worsen or any other concerns. Your workup today showed no acute process other than some mild dehydration. Please follow up with Dr. Ayers. Is patient prescribed a controlled substance at d/c from ED?: No Referrals: Junaid Ayers MD [Primary Care Provider] - 1-2 days Time of Disposition: 18:58
[2021-04-08 15:58] LABS: Appearance,Urine Clear (Clear); Bilirubin,Urine Negative (Negative); Blood,Urine Negative (Negative); Color,Urine Colorless; Glucose,Urine (UA) Negative (Negative); Ketones,Urine Negative (Negative); Leukocyte Esterase,Urine Negative (Negative); Nitrite,Urine Negative (Negative); Protein,Urine Negative (Negative); Specific Gravity,Urine 1.002 (1.001-1.035); Urobilinogen,Urine <2.0 mg/dL (<2.0)
--- NOTE | 2021-04-08 16:12 | CT ---
EXAMINATION TYPE: CT brain wo con DATE OF EXAM: 04/08/2021 COMPARISON: None HISTORY: Burning headache that starts at base of neck. Dizziness. CT DLP: 1090.4 mGycm Automated exposure control for dose reduction was used. Helical imaging through the brain. FINDINGS: Cerebrovascular calcifications are noted within the vertebral basilar system, internal carotid arteri es. There is no hemorrhage or hydrocephalus. Periventricular white matter shows patchy low attenuatio n. Corpus callosum, pituitary, cervical medullary junction are within normal limits. Orbits show symm etric appearance. IMPRESSION: AGE-RELATED CHANGES OF ATROPHY AND CHRONIC SMALL VESSEL ISCHEMIA.
--- NOTE | 2021-04-08 18:13 | CT ---
EXAMINATION TYPE: CT chest angio for PE DATE OF EXAM: 04/08/2021 COMPARISON: None HISTORY: Dyspnea, elevated d-dimer, dizziness. CT DLP: 231.1 mGycm Automated exposure control for dose reduction was used. CONTRAST: Performed with IV Contrast, patient injected with 100 mL of Isovue 370. There are 3-D post processed images. There is no evidence of a pulmonary mass. Lungs are clear of consolidation. There is no mediastinal a denopathy. Thoracic aorta shows some atheromatous changes. The ascending aorta measures 2.9 cm. There is no dissection. There is normal contrast opacification of the pulmonary arteries. There are no filling defects. There are no hilar masses. There is a upper thoracic dextroscoliosis and thoracolumbar levoscoliosis defor mity. There is no compression fracture. The upper abdominal soft tissues are intact. The ribs appear intact. IMPRESSION: No evidence of pulmonary embolism. Thoracic scoliotic deformity. Negative exam.
[2021-04-08 18:28] VITALS: BP 143/75; PULSE 80; RESP 18; TEMP 98
== END 2021-04-08 19:04 | disposition home or self-care (01) ==
LOC: EC 14:13
DX: R06.02 Shortness of breath (principal); E86.0 Dehydration; M54.2 Cervicalgia; R05 Cough; R55 Syncope and collapse; I10 Essential (primary) hypertension; M41.9 Scoliosis, unspecified; Z79.899 Other long term (current) drug therapy
CPT/HCPCS: 36415; 93005; 85379; 80053; 83605; 84484; 85025; 85610; 85730; 81003; 71046; 70450; 71275; 99285; Q9967

== ENCOUNTER → 2021-05-03 | Outpatient (CLI) | payer MEDICARE ==
--- NOTE | 2021-05-07 15:06 | HM ---
HOLTER MONITOR REPORT DATE OF THE STUDY: May 03, 2021. REFERRING PHYSICIAN: Dr. Ayers. The patient was monitored for 24 hours. The baseline rhythm appeared to be sinus with a minimum heart rate of 58 and max 112, average of 77 beats per minute. The patient did have PVC's noted. The frequency of the PVCs unfortunately are not mentioned in the report. No supraventricular ectopic events noted. No significant sinus bradycardia noted. As a matter of fact, reviewing the monitor did indicate frequent ventricular ectopic events at 7.7%. CONCLUSION: 1. This is a 24 hour mackey monitor. 2. Sinus rhythm as a baseline mechanism. 3. Frequent ventricular ectopic events presented and presented as PVCs at 7.7% of the time. 4. The patient did report symptoms of shortness of breath associated with PVC. 5. No evidence of any supraventricular ectopic events. 6. There is no evidence of any sinus pause or sinus arrest. MMODL / IJN: [id number] /
== END | disposition home or self-care (01) ==
LOC: RADECHMAIN 11:48
PROVIDERS: ATTEND Family Medicine
DX: I49.3 Ventricular premature depolarization (principal); I49.1 Atrial premature depolarization
CPT/HCPCS: 93225; 93226

== ENCOUNTER → 2021-10-26 | Outpatient (CLI) | payer MEDICARE ==
--- NOTE | 2021-10-26 15:37 | NM ---
"EXAMINATION TYPE: NM bone scan whole body DATE OF EXAM: 10/26/2021 COMPARISON: NONE HISTORY: Left hip pain Delayed whole-body scanning was performed following the injection of 22 mCi Tc 99m MDP. Images were acquired 3 hours post injection. FINDINGS: There is increased radiotracer accumulation at the left hip joint space. Degenerative changes could b e considered. There is increased radiotracer accumulation in the region of the L3 level. Compression deformity coul d be considered. Scoliosis is evident within the upper thoracic spine. Degenerative type uptake is wi thin the cervical spine. Degenerative joint uptake is noted to the upper extremity. Right hip prosthe sis is noted IMPRESSION: 1. Diffuse uptake corresponding to the left hip joint space. Consider degenerative change. Evaluate f or septic arthritis. 2. Possible compression deformity in the region of L2 or L3. 3. Scoliosis in the upper thoracic spine. 4. Degenerative joint changes within the upper extremities bilaterally. A [place] level critical message alert has been initiated for Junaid Ayers MD via the [employer] | Critical Results System on 10/26/2021 3:35 PM. This message alert has been sent to Kaykay Ayers MD via the preferences provided by the clinician for the receipt of Radiology Critical F indings. Message ID [id number]."
== END | disposition home or self-care (01) ==
LOC: RADNMMAIN 10:15
PROVIDERS: ATTEND Family Medicine
DX: M41.84 Other forms of scoliosis, thoracic region (principal); M19.09 Primary osteoarthritis, other specified site
CPT/HCPCS: 78306; A9503

== ENCOUNTER 2022-02-07 12:08 | Emergency (ER) | payer MEDICARE ==
[2022-02-07 12:24] VITALS: TEMP 97.3
[2022-02-07] MEDS ORDERED: SODIUM CHLORIDE 0.9% 1,000 ML IV ONE (12:28)
--- NOTE | 2022-02-07 12:30 | ED ---
General Adult HPI - General Chief complaint: Syncope Stated complaint: syncope Time Seen by Provider: 02/07/22 12:10 Source: patient, EMS, RN notes reviewed, old records reviewed Mode of arrival: EMS Limitations: no limitations - History of Present Illness Initial comments: This is a 81-year-old female with past medical history significant for syncope a nd high blood pressure. Patient states about 3 weeks ago she had a blood pressure medication increased and normally she takes it after she eats lunch. Patient states today she took just before she ate lunch went down to the cafeteria and started feeling woozy and put her head down and according to the bystanders passed out for a few minutes. Patient states she never had any chest pain shortness of breath or difficulty breathing. Patient never felt any palpitations. Patient denies any headache patient denies numbness weakness. Patient denies any recent fever chills or cough. Patient states this has happened to her at least 10 times before over the years. Patient denies any abdominal pain patient denies nausea vomiting or diarrhea. - Related Data Home Medications Medication Instructions Recorded Confirmed Omeprazole [PriLOSEC] 20 mg PO AC-BRKFST 10/10/18 02/07/22 hydroCHLOROthiazide [Hydrodiuril] 25 mg PO DAILY 10/10/18 02/07/22 Simvastatin [Zocor] 40 mg PO HS 04/08/21 02/07/22 Losartan Potassium 100 mg PO DAILY 02/07/22 02/07/22 Potassium Chloride ER [K-Dur 10] 10 meq PO BID 02/07/22 02/07/22 hydrALAZINE HCL [Apresoline] 10 mg PO TID 02/07/22 02/07/22 Allergies Allergy/AdvReac Type Severity Reaction Status Date / Time No Known Allergies Allergy Verified 02/07/22 13:20 Review of Systems ROS Statement: Those systems with pertinent positive or pertinent negative responses have been documented in the HPI. ROS Other: All systems not noted in ROS Statement are negative. Past Medical History Past Medical History: Hypertension Additional Past Medical History / Comment(s): scoliosis, vasovagal disorder History of Any Multi-Drug Resistant Organisms: None Reported Past Surgical History: No Surgical Hx Reported, Joint Replacement Additional Past Surgical History / Comment(s): D & C's Past Anesthesia/Blood Transfusion Reactions: Previous Problems w/ Anesthesia, Family History of Problems w/ Anesthesia Additional Past Anesthesia/Blood Transfusion Reaction / Comment(s): woke crying hysterically after surgery, daughter gets sick w/anesthesia & cries Past Psychological History: No Psychological Hx Reported Smoking Status: Never smoker Past Alcohol Use History: None Reported Past Drug Use History: None Reported - Past Family History Mother Family Medical History: No Reported History General Exam - General Exam Comments Initial Comments: GENERAL: Patient is well-developed and well-nourished. Patient is nontoxic and well- hydrated and is in no acute distress. ENT: Neck is soft and supple. No significant lymphadenopathy is noted. Oropharynx is clear. Moist mucous membranes. Neck has full range of motion without eliciting any pain. EYES: The sclera were anicteric and conjunctiva were pink and moist. Extraocular movements were intact and pupils were equal round and reactive to light. Eyelids were unremarkable. PULMONARY: Unlabored respirations. Good breath sounds bilaterally. No audible rales rhonchi or wheezing was noted. CARDIOVASCULAR: There is a regular rate and rhythm without any murmurs gallops or rubs. ABDOMEN: Soft and nontender with normal bowel sounds. SKIN: Skin is clear with no lesions or rashes and otherwise unremarkable. NEUROLOGIC: Patient is alert and oriented x3. Cranial nerves II through XII are grossly intact. Motor and sensory are also intact. Normal speech, volume and content. Symmetrical smile. MUSCULOSKELETAL: Normal extremities with adequate strength and full range of motion. No lower extremity swelling or edema. No calf tenderness. LYMPHATICS: No significant lymphadenopathy is noted PSYCHIATRIC: Normal psychiatric evaluation. Limitations: no limitations Course Vital Signs 02/07/22 02/07/22 02/07/22 12:09 12:23 12:26 Temperature 95.0 F L 97.3 F L Pulse Rate 62 Pulse Rate [ Sitting Surfacer Operator] Pulse Rate [ Standing Surfacer Operator ] Pulse Rate [ 68 Supine Surfacer Operator] Respiratory 16 16 Rate Blood Pressure 151/68 Blood Pressure [Right Arm Sitting] Blood Pressure [Right Arm Standing] Blood Pressure 135/61 [Right Arm Supine] O2 Sat by Pulse 99 99 Oximetry 02/07/22 02/07/22 02/07/22 12:27 12:28 13:20 Temperature Pulse Rate 48 L Pulse Rate [ 71 Sitting Surfacer Operator] Pulse Rate [ 76 Standing Surfacer Operator ] Pulse Rate [ Supine Surfacer Operator] Respiratory 16 16 18 Rate Blood Pressure 176/70 Blood Pressure 148/74 [Right Arm Sitting] Blood Pressure 146/69 [Right Arm Standing] Blood Pressure [Right Arm Supine] O2 Sat by Pulse 99 98 97 Oximetry Medical Decision Making - Medical Decision Making EKG shows sinus rhythm at 69 bpm LA interval is 204 QRS is 94 QT interval 389 QTC is 407. Patient's EKG shows no ST segment elevation. Patient states she took a potassium this morning on an empty stomach which makes her nauseated. Patient thinks that's what was occurring this morning when she took because he didn't feel well and she had a vasovagal episode passed out. Patient again states she's had this happen many times before. Patient was given a full liter of normal saline between EMS and the emergency department. Patient got up and landed wrong with no symptoms. Patient wanted to be discharged home to follow-up with her doctor. Patient already has an appointment on Sunday. - Lab Data Result diagrams: 02/07/22 12:34 02/07/22 12:34 Lab Results 02/07/22 02/07/22 Range/Units 12:34 12:34 WBC 5.3 (3.8-10.6) k/uL RBC 4.62 (3.80-5.40) m/uL Hgb 14.5 (11.4-16.0) gm/dL Hct 42.7 (34.0-46.0) % MCV 92.4 (80.0-100.0) fL MCH 31.3 (25.0-35.0) pg MCHC 33.9 (31.0-37.0) g/dL RDW 12.5 (11.5-15.5) % Plt Count 198 (150-450) k/uL MPV 6.7 Neutrophils % 76 % Lymphocytes % 13 % Monocytes % 8 % Eosinophils % 1 % Basophils % 1 % Neutrophils # 4.0 (1.3-7.7) k/uL Lymphocytes # 0.7 L (1.0-4.8) k/uL Monocytes # 0.4 (0-1.0) k/uL Eosinophils # 0.1 (0-0.7) k/uL Basophils # 0.0 (0-0.2) k/uL Sodium 129 L (137-145) mmol/L Potassium 3.1 L (3.5-5.1) mmol/L Chloride 95 L (98-107) mmol/L Carbon Dioxide 28 (22-30) mmol/L Anion Gap 6 mmol/L BUN 12 (7-17) mg/dL Creatinine 0.62 (0.52-1.04) mg/dL Est GFR (CKD-EPI)AfAm >90 (>60 ml/min/1.73 sqM) Est GFR (CKD-EPI)NonAf 86 (>60 ml/min/1.73 sqM) Glucose 119 H (74-99) mg/dL Calcium 8.6 (8.4-10.2) mg/dL Magnesium 1.7 (1.6-2.3) mg/dL Total Bilirubin 0.5 (0.2-1.3) mg/dL AST 24 (14-36) U/L ALT 15 (4-34) U/L Alkaline Phosphatase 49 (38-126) U/L Total Protein 6.2 L (6.3-8.2) g/dL Albumin 3.7 (3.5-5.0) g/dL Disposition Clinical Impression: Vasovagal syncope, Hypokalemia Disposition: HOME SELF-CARE Condition: Good Instructions (If sedation given, give patient instructions): Syncope (ED) Additional Instructions: Patient should double up on her potassium for the next 5 days. Is patient prescribed a controlled substance at d/c from ED?: No Referrals: Junaid Ayers MD [Primary Care Provider] - 1-2 days Time of Disposition: 13:33
[2022-02-07 12:53] LABS: Basophils % (A) 1 %; Eosinophils # (A) 0.1 k/uL (0-0.7); Eosinophils % (A) 1 %; HCT 42.7 % (34.0-46.0); HGB 14.5 gm/dL (11.4-16.0); Lymphocytes # (A) 0.7 k/uL (1.0-4.8); Lymphocytes % (A) 13 %; MCH 31.3 pg (25.0-35.0); MCHC 33.9 g/dL (31.0-37.0); MCV 92.4 fL (80.0-100.0); Mean Platelet Volume 6.7; Monocytes # (A) 0.4 k/uL (0-1.0); Monocytes % (A) 8 %; Neutrophils % (A) 76 %; Platelet Count 198 k/uL (150-450); RBC 4.62 m/uL (3.80-5.40); RDW 12.5 % (11.5-15.5); WBC 5.3 k/uL (3.8-10.6)
[2022-02-07 13:13] LABS: ALT 15 U/L (4-34); AST 24 U/L (14-36); African American GFR (CKD) >90 (>60 ml/min/1.73 sqM); Albumin 3.7 g/dL (3.5-5.0); Alkaline Phosphatase 49 U/L (38-126); Anion Gap 6 mmol/L; Blood Urea Nitrogen 12 mg/dL (7-17); Calcium 8.6 mg/dL (8.4-10.2); Carbon Dioxide 28 mmol/L (22-30); Chloride 95 mmol/L (98-107); Glucose 119 mg/dL (74-99); Magnesium 1.7 mg/dL (1.6-2.3); Non-African American GFR(CKD) 86 (>60 ml/min/1.73 sqM); Potassium 3.1 mmol/L (3.5-5.1); Sodium 129 mmol/L (137-145); Total Bilirubin 0.5 mg/dL (0.2-1.3); Total Protein 6.2 g/dL (6.3-8.2)
[2022-02-07] MEDS ORDERED: POTASSIUM CHLORIDE ER 20 MEQ TAB.ER PO STA (13:21)
[2022-02-07 13:28] VITALS: BP 176/70; PULSE 48; RESP 18
== END 2022-02-07 13:42 | disposition home or self-care (01) ==
LOC: EC 12:08
DX: R55 Syncope and collapse (principal); E87.6 Hypokalemia; I10 Essential (primary) hypertension
CPT/HCPCS: 36415; 80053; 83735; 85025; 93005; 99284

== ENCOUNTER → 2022-10-13 | Outpatient (CLI) | payer MEDICARE ==
[2022-10-13 13:14] LABS: African American GFR (CKD) >90 (>60 ml/min/1.73 sqM); Blood Urea Nitrogen 8 mg/dL (7-17); Non-African American GFR(CKD) >90 (>60 ml/min/1.73 sqM)
--- NOTE | 2022-10-13 14:56 | CT ---
EXAMINATION TYPE: CT abdomen pelvis w con DATE OF EXAM: 10/13/2022 COMPARISON: None HISTORY: abd distention, bloating and pain CT DLP: 971 mGycm CONTRAST: CT scan of the abdomen and pelvis is performed with Oral Contrast and with IV Contrast, patient injec murali with 70 mL of Isovue 300. FINDINGS: LUNG BASES-: No visible nodule. No infiltrate. LIVER/GB: No calcified gallstones. No space occupying hepatic lesion. Biliary tree is of normal ca liber. PANCREAS: No inflammation. No distinct mass. SPLEEN: No splenic enlargement. No lesion seen. ADRENALS: No nodule. No thickening. KIDNEYS/BLADDER: No hydronephrosis. No nephrolithiasis. No distinct renal mass. Urinary bladder g rossly unremarkable. BOWEL: Normal appendix. Normal bowel caliber. No inflammation. Moderate fecal stasis. GENITAL ORGANS: Hysterectomy changes. No evidence for adnexal mass. LYMPH NODES: No greater than 1cm abdominal or pelvic lymph nodes are appreciated. AORTA: No significant abnormality. OSSEOUS STRUCTURES: No significant abnormality is seen. OTHER: No significant additional abnormality is seen. IMPRESSION: 1. No significant abnormality to account for the patient's symptoms.
== END | disposition home or self-care (01) ==
LOC: RADCTMAIN 12:22
PROVIDERS: ATTEND Family Medicine
DX: K21.9 Gastro-esophageal reflux disease without esophagitis (principal); R14.0 Abdominal distension (gaseous); R63.5 Abnormal weight gain
CPT/HCPCS: 82565; 84520; 74177; 36415; Q9967

== ENCOUNTER → 2022-11-21 | Outpatient (CLI) | payer MEDICARE ==
--- NOTE | 2022-11-21 15:19 | MR ---
EXAMINATION TYPE: MR angio head wo con DATE OF EXAM: 11/21/2022 COMPARISON: CT brain 04/08/2021, MR brain 11/21/2022. HISTORY: Dizziness, lightheadedness, nausea TECHNIQUE: Time of flight images focusing on the Luna of Junior were performed without contrast. FINDINGS: Vertebral arteries: The vertebral arteries are patent. The vertebral arteries are codominant Basilar artery: The basilar artery is intact. The basilar artery bifurcation is normal. Internal Carotid arteries: The cervical, petrous, cavernous and supraclinoid segments are normal. GUILLE: Patent with no evidence of aneurysm. ACOM: Present without evidence of aneurysm. MCA: Patent with no evidence of aneurysm. Susceptibility artifact at the branch point of the right M2 segment corresponding to calcification on CT (series 301, image 94). GOSPEL SINGER: Patent with no evidence of aneurysm. PCOM: Hypoplastic bilaterally. IMPRESSION: 1. No evidence of aneurysm. 2. Moderate stenosis at a branch point of the right M2 segment with atherosclerotic calcification. N o significant stenosis within the remaining visualized vasculature.
--- NOTE | 2022-11-21 22:12 | MR ---
EXAMINATION TYPE: MR brain wo/w con DATE OF EXAM: 11/21/2022 3:06 PM CLINICAL INDICATION:Female, 82 years old with history of R06.02 SOB, R42 LIGHTHEADEDNESS; COMPARISON: 11/21/2022 MRA head. TECHNIQUE: Multi planar, multi sequence imaging was performed through the brain including: T1, T2, In version recovery, susceptibility weighted imaging and gradient echo imaging and Diffusion weighted im aging. The patient was then given intravenous contrast and multi planar, T1 fat-saturation images wer e obtained. IV Contrast: 5.5 cc Gadavist FINDINGS: The patel-white junctions, ventricular system, basal cisterns appear unremarkable. Diffusion-weighted imaging shows no evidence of restricted diffusion to suggest acute/subacute infarct. Intracranial art erial flow voids are maintained. Midline structures show no abnormality. Scattered foci of high T2 si gnal intensity are seen within the periventricular white matter. The susceptibility weighted images d o not reveal any evidence for micro-hemorrhage. After administration of gadolinium, no abnormal enhan cement is seen. The bone marrow signal is within normal limits. Paranasal sinuses and mastoid air cells: Mild scattered paranasal sinus disease. Visualized orbits: Orbital contents are intact. IMPRESSION: 1. No evidence of intracranial mass, acute/subacute infarct, or abnormal enhancement. 2. Minimal nonspecific white matter changes, likely related to small vessel ischemic disease
== END | disposition home or self-care (01) ==
LOC: RADMRIMAIN 14:00
PROVIDERS: ATTEND Family Medicine
DX: I25.10 Atherosclerotic heart disease of native coronary artery without angina pectoris (principal); R90.82 White matter disease, unspecified; R06.02 Shortness of breath; R42 Dizziness and giddiness
CPT/HCPCS: 70544; 70553; A9585

== ENCOUNTER → 2023-08-14 | Outpatient (CLI) | payer MEDICARE ==
--- NOTE | 2023-08-15 09:36 | CA ---
Transthoracic Echo Report Name: Eveline Cifuentes Age: 83 Gender: F : 1940 Exam Date: 08/14/2023 15:02 Exam Location: [facility] Ht (in): 58 Wt (lb): 125 Ordering Physician: Junaid Ayers MD Attending/Referring Phys: Armen LOZOYA Sales Operations Lead Elle Roe RDCS Procedure CPT: Indications: R09.9 CHEST PAIN, UNSPECIFIED Cardiac Hx: Technical Quality: Fair Contrast 1: Total Dose (mL): Contrast 2: Total Dose (mL): MEASUREMENTS (Male / Female) Normal Values 2D ECHO LV Diastolic Diameter PLAX 2.6 cm 4.2 - 5.9 / 3.9 - 5.3 cm LV Systolic Diameter PLAX 1.8 cm IVS Diastolic Thickness 1.0 cm 0.6 - 1.0 / 0.6 - 0.9 cm LVPW Diastolic Thickness 1.1 cm 0.6 - 1.0 / 0.6 - 0.9 cm LV Relative Wall Thickness 0.8 RV Internal Dim ED PLAX 2.5 cm LA Volume 26.8 cm??? 18 - 58 / 22 - 52 cm??? M-MODE Aortic Root Diameter MM 2.7 cm LA Systolic Diameter MM 3.7 cm LA Ao Ratio MM 1.4 AV Cusp Separation MM 1.7 cm DOPPLER AV Peak Velocity 214.4 cm/s AV Peak Gradient 18.4 mmHg AV Mean Velocity 138.3 cm/s AV Mean Gradient 8.9 mmHg AV Velocity Time Integral 39.5 cm AI Peak Velocity 527.0 cm/s AI Peak Gradient 111.1 mmHg AI Pressure Half Time 527.1 ms LVOT Peak Velocity 145.1 cm/s LVOT Peak Gradient 8.4 mmHg LVOT Velocity Time Integral 28.9 cm MV Area PHT 3.1 cm??? Mitral E Point Velocity 59.9 cm/s Mitral A Point Velocity 97.9 cm/s Mitral E to A Ratio 0.6 MV Deceleration Time 242.2 ms MV E' Velocity 3.4 cm/s Mitral E to MV E' Ratio 17.7 TR Peak Velocity 283.0 cm/s TR Peak Gradient 32.0 mmHg Right Ventricular Systolic Press 37.0 mmHg FINDINGS Left Ventricle Normal Left ventricular size, wall thickness, systolic function with no obvious regional wall motion abnormalities. Normal Left ventricular diastolic filling pattern. Left ventricular ejection fraction is estimated at 55%. Asymmetric septal hypertrophy Right Ventricle Normal right ventricular size and function. Right Atrium Normal right atrial size. Left Atrium Normal left atrial size. Mitral Valve Structurally normal mitral valve. Mitral valve thickened. Mild mitral annular calcification. Mild mitral regurgitation. Aortic Valve Mild aortic stenosis with a peak gradient of 18 mmHg and a mean gradient of 9 mmHg. Mild aortic regurgitation. Tricuspid Valve Structurally normal tricuspid valve. Mild tricuspid regurgitation. Pulmonic Valve Trace pulmonic regurgitation. Pericardium No pericardial effusion. Aorta Normal size aortic root and proximal ascending aorta. CONCLUSIONS Left ventricular ejection fraction 55% RVSP 37 Mild mitral calcification Mild mitral regurgitation Mild aortic regurgitation Mild aortic stenosis Mild tricuspid regurgitation No pericardial effusion Previewed by: Dr. Toi Bailey DO (Electronically Signed) Final Date: 15 August 2023 09:34
== END | disposition home or self-care (01) ==
LOC: RADECHMAIN 14:54
PROVIDERS: ATTEND Family Medicine
DX: I08.3 Combined rheumatic disorders of mitral, aortic and tricuspid valves (principal); I10 Essential (primary) hypertension; R07.9 Chest pain, unspecified; R06.02 Shortness of breath
CPT/HCPCS: 93306

== ENCOUNTER → 2024-01-23 | Outpatient (CLI) | payer MEDICARE ==
[2024-01-23 14:24] LABS: African American GFR (CKD) >90 (>60 ml/min/1.73 sqM); Blood Urea Nitrogen 9 mg/dL (7-17); Non-African American GFR(CKD) >90 (>60 ml/min/1.73 sqM)
--- NOTE | 2024-01-23 21:38 | CT ---
EXAMINATION TYPE: CT abdomen w con DATE OF EXAM: 01/23/2024 COMPARISON: 10/13/2022 HISTORY: 83-year-old female upper abdominal pain with bloating. TECHNIQUE: Contiguous axial scanning of the abdomen following administration of 90 ml Isovue 300 IV c ontrast. Delayed images through the kidneys and coronal/sagittal reconstructions performed. CT DLP: 517.20 mGycm Automated exposure control for dose reduction was used. FINDINGS: Heart upper limits of normal in size without pericardial effusion. Lung bases clear without pleural e ffusion. Suspect a tiny hiatal hernia. No focal liver lesion or biliary ductal dilatation. Portal venous system is patent. Gallbladder is collapsed. Adrenal glands, spleen, and pancreas within normal limits. Tiny 6 mm cortical cyst medial upper pole right kidney. No hydronephrosis. Symmetric uptake and excre tion of contrast from both kidneys. No dilated small bowel, free fluid, or free air. No mesenteric or retroperitoneal lymphadenopathy. Mild atherosclerotic calcifications abdominal aorta without aneurysm. Normal appendix visualized. Scattered mild to moderate stool. Redundant sigmoid colon. No pericoloni c inflammatory change. Pelvis not imaged. Bones: Advanced spondylotic change mid and lower lumbar spine with degenerative grade 1 anterolisthes es of L3-L4 and L4-L5. There may be severe spinal canal stenosis at L3-L4 and moderate at L2-L3 and L 4-L5. Moderate to severe neuroforaminal stenoses throughout the lumbar spine. IMPRESSION: 1. SUSPECTED TINY HIATAL HERNIA. OTHERWISE, NO ACUTE INFLAMMATORY PROCESS IDENTIFIED IN THE ABDOMEN. PELVIS NOT IMAGED. 2. ADVANCED SPONDYLOTIC CHANGE THROUGHOUT THE MID AND LOWER LUMBAR SPINE WITH DETAILS ABOVE.
== END | disposition home or self-care (01) ==
LOC: RADCTMAIN 13:43
PROVIDERS: ATTEND Family Medicine
DX: M47.816 Spondylosis without myelopathy or radiculopathy, lumbar region (principal); R14.0 Abdominal distension (gaseous)
CPT/HCPCS: 82565; 84520; 74160; 36415; Q9967

== ENCOUNTER → 2024-01-30 | Outpatient (CLI) | payer MEDICARE ==
--- NOTE | 2024-01-30 11:58 | CA ---
Stress Echo Report Eveline Cifuentes Age: 83 Gender: F : 1940 Exam Date: 01/30/2024 09:14 Exam Location: [facility] Ht (in): 59 Wt (lb): 125 Ordering Physician: Junaid Ayers MD Referring Physician: Armen LOZOYA [employer] Press Operator: Elle Roe RDCS Technologist Procedure CPT: Indication: R06.02 SHORTNESS OF BREATH ICD-9 Codes: Rhythm: Patient History: DIFFICULTY IN BREATHING, HTN Cardiac Medications: Medications in past 24 hours: Contrast: Stress Results Protocol: Peter Total dose(mL): Exercise Duration (min:sec): 2:[address] Depression (mm): Angina Score: Lindquist Score: METS: 3.8 Resting HR: 107 Resting BP: 195 / 68 Peak HR: 139 Peak BP: 207 / 66 Max Predicted HR: 139 100 % Max Predicted HR Target HR: 118 Double Product: [id number] Stress Summary: BP Response: Reason for Termination: ASHLIE/MAX EXERTION Cardiac Symptoms: ECG Analysis Resting ECG: Normal sinus rhythm with inferolateral ST-T wave changes Stress ECG: Patient exercised on Peter protocol to an half minutes achieving 85% of predicted maximal heart rate without chest pain there was one and half millimeter [address] segment depression noted in the inferolateral leads Arrhythmia: Echo Analysis Resting Echo: Normal left ventricular size wall motion systolic function Peak Echo Analysis: Exercise induced wall motion motion abnormality involving the inferior wall MEASUREMENTS (Male/Female) Normal Values CONCLUSIONS Extremely poor exercise tolerance High risk EKG stress test Inferior wall motion abnormality at peak exercise Dr. Joshua Russell MD (Electronically Signed) Final Date: 30 January 2024 11:57
== END | disposition home or self-care (01) ==
LOC: RADNMMAIN 08:51
PROVIDERS: ATTEND Family Medicine
DX: R94.31 Abnormal electrocardiogram [ECG] [EKG] (principal); R07.9 Chest pain, unspecified; R06.02 Shortness of breath
CPT/HCPCS: 93351

== ENCOUNTER → 2024-06-23 | Outpatient (CLI) | payer MEDICARE ==
[2024-06-23 17:21] LABS: HCT 47.8 % (37.2-46.3); HGB 15.8 g/dL (12.0-15.0); MCHC 33.1 g/dL (32.0-37.0); MCV 90.7 FL (80.0-97.0); Mean Platelet Volume 10.1 FL (9.5-12.2); NRBC Per 100 WBC 0 X 10*3/uL (0.00-0.01); Platelet Count 252 X 10*3/uL (140-440); RBC 5.27 X 10*6/uL (4.10-5.20); RDW 13.4 % (11.5-14.5); WBC 5.19 X 10*3/uL (4.50-10.00)
[2024-06-23 17:36] LABS: Blood Urea Nitrogen 7.6 mg/dL (9.0-27.0); Carbon Dioxide 24.1 mmol/L (21.6-31.8); Chloride 97 mmol/L (96-109); Potassium 4.3 mmol/L (3.5-5.5); Sodium 135 mmol/L (135-145)
== END | disposition home or self-care (01) ==
LOC: LABPAT 12:05
PROVIDERS: ATTEND Internal Medicine
DX: Z01.812 Encounter for preprocedural laboratory examination (principal); R06.02 Shortness of breath
CPT/HCPCS: 80051; 82565; 84520; 85027

== ENCOUNTER 2024-06-27 11:47 | Day surgery (SDC) | payer MEDICARE ==
[~2024-06-27 11:47] MED LIST changes: -ACETAMINOPHEN TAB 500 MG TAB PO ONE; +ALPRAZolam 0.25 MG TAB PO PRN; +ALPRAZolam 0.5 MG TAB PO PRN; +HEPARIN SODIUM,PORCINE (1 ML) 2,500 UNIT in SODIUM CHLORIDE 0.9% 250 ML IRRIGATION PRN; +HEPARIN SODIUM,PORCINE 10,000 UNIT in SODIUM CHLORIDE 0.9% 1,000 ML IRRIGATION PRN; -MELOXICAM 7.5 MG TAB PO ONE; +NITROGLYCERIN SL TABS 0.4 MG TAB SUBLINGUAL PRN; -TRANEXAMIC ACID 1,000 MG in SODIUM CHLORIDE 0.9% 50 ML IVPB ONE; -VANCOMYCIN 750 MG in SODIUM CHLORIDE 0.9% 250 ML IVPB ONE
[2024-06-27 12:16] VITALS: TEMP 98.3
[2024-06-27] MEDS: IV FLUID CONTINUATION 1,000 ML IV ONE (12:17)
[2024-06-27] MEDS: SODIUM CHLORIDE 0.9% 1,000 ML in EMPTY BAG 1 BAG IV SCH (12:17)
[2024-06-27] MEDS: ASPIRIN 325 MG TAB PO STA (12:17)
[2024-06-27] MEDS ORDERED: LIDOCAINE 1% INJ 10MG/ML (20 ML MDV) ONE (12:55)
[2024-06-27] MEDS ORDERED: VERAPAMIL 2.5 MG/ML 2 ML AMP ONE (12:55)
[2024-06-27] MEDS ORDERED: fentaNYL (PF) 50 MCG/ML 2 ML AMP ONE (13:15)
[2024-06-27] MEDS ORDERED: HEPARIN SODIUM 1,000 UN/ML (10ML VL) ONE (13:15)
[2024-06-27] MEDS: LIDOCAINE 2% (PF) 20 MG/ML 10 ML AMP SQ ONE (13:16)
[2024-06-27] MEDS: VERAPAMIL 2.5 MG/ML 4 ML VIAL INTRAARTER ONE (13:17)
[2024-06-27] MEDS: MIDAZOLAM 2 MG/2 ML VIAL IVP ONE (13:18)
[2024-06-27] MEDS: fentaNYL (PF) 50 MCG/1 ML VIAL IVP ONE (13:18)
[2024-06-27] MEDS: HEPARIN SODIUM 1,000 UN/ML (10ML VL) IVP ONE (13:21)
[2024-06-27] MEDS: IOPAMIDOL-370 100ML BTL INJ ONE (13:27)
--- NOTE | 2024-06-27 13:36 | P.CARDCATH ---
Description of Procedure: PROCEDURES PERFORMED: Left heart catheterization, bilateral coronary angiography, ultrasound guided arterial access INDICATION: abnormal stress test CONSENT:I have discussed the risks, benefits and alternative therapies for the above-mentioned procedure and for both sedation/analgesia as well as necessary blood product administration, if indicated, as they pertain to this patient. The patient has indicated understanding and acceptance of the risks and procedures discussed. PROCEDURE: After the risks, benefits and alternatives of the above mentioned procedure explained in detail with the patient, informed consent was obtained. Patient was taken to the catheterization lab and prepped and draped in usual fashion. Ultrasound guidance was used to assess for arterial access. 1% lidocaine was used to anesthetize the right radial artery. A 6-Nigerien sheath was placed in the right radial artery using modified Seldinger technique and ultrasound guidance. Left coronary angiography was performed with a 5-Nigerien JL 3.5 catheter and right coronary angiography was performed with a 5-Nigerien FR5 catheter in various views. A 5-Nigerien FR5 catheter was inserted into the left ventricle and pressure measurements were obtained. The right radial sheath was removed and a TR band was placed with hemostasis achieved. The patient to lerated the procedure well. Patient was transported back to the post catheterization holding area in stable condition. Conscious Sedation: Patient was monitored under the direct supervision of myself for conscious sedation using Versed and fentanyl for a total duration of 11 minutes HEMODYNAMICS: aorta: 156/78 LV: 155/5, LVEDP 15 SELECTIVE CORONARY ARTERIOGRAPHY: LEFT MAIN: The left main is a large caliber vessel which bifurcates into the LAD and circumflex. There is no significant stenosis. LEFT ANTERIOR DESCENDING CORONARY ARTERY: LAD is a large caliber vessel which wraps around to the apex. There is a proximal LAD 30-40% stenosis and otherwise mild luminal irregularities. LEFT CIRCUMFLEX CORONARY ARTERY: Left circumflex is a moderate caliber vessel with mild luminal irregularities RIGHT CORONARY ARTERY: The right coronary artery is a large caliber vessel which gives off a PDA and PLV branch and is the dominant vessel. There are mild luminal irregularities. FINAL IMPRESSION: 1. Mild CAD as described above including proximal LAD 30-40% stenosis and otherwise mild luminal irregularities. 2. Normal left sided filling pressures PLAN: 1. Aggressive risk factor modification per most recent ACC/AHA guidelines. 2. Follow-up in the office in 1-2 weeks.
[2024-06-27 15:25] VITALS: RESP 14
[2024-06-27 16:46] VITALS: BP 168/82; PULSE 76
== END 2024-06-27 16:46 | disposition home or self-care (01) ==
LOC: CATHCVL 11:47
PROVIDERS: ATTEND Internal Medicine
DX: I25.10 Atherosclerotic heart disease of native coronary artery without angina pectoris (principal)
CPT/HCPCS: 93458; J2250; J2001; J1644; Q9967; J3010